=== PATIENT | female | born 1990 | race Caucasian/White ===

== ENCOUNTER 2016-07-31 22:05 | Emergency (ER) | payer MEDICAID ==
--- NOTE | 2016-08-01 02:05 | ER Document Report ---
ED General - General Chief Complaint: Nausea/Vomiting Stated Complaint: VOMITING WITH Notes: Patient is a 26-year-old at 15 weeks gestation who presents with vomiting. States she's had frequent vomiting throughout this but had more severe vomiting tonight after eating Serbian food than normal. States that she's been able tolerate fluids since that time. Zofran helped improved her nausea and vomiting. Nothing worsens her symptoms. She notes that after the multiple episodes of vomiting she had a diffuse abdominal cramping pain which has since resolved. Denies any vaginal bleeding or discharge. She has not seen her primary care physician regarding today's concerns. No history of abdominal surgeries. No fever. TRAVEL OUTSIDE OF THE [place] IN LAST 30 DAYS: No - Related Data Allergies/Adverse Reactions: No Known Allergies Allergy (Verified 01/01/14 17:25) Past Medical History - General Information source: Patient - Social History Smoking Status: Current Every Day Smoker Chew tobacco use (# tins/day): No Frequency of alcohol use: None Drug Abuse: None Lives with: Spouse/Significant other Family History: Reviewed & Not Pertinent Patient has suicidal ideation: No Patient has homicidal ideation: No Neurological Medical History: Reports: Hx Migraine Renal/ Medical History: Denies: Hx Peritoneal Dialysis - Immunizations Immunizations up to date: Yes Hx Diphtheria, Pertussis, Tetanus Vaccination: Yes Review of Systems - Review of Systems Notes: Constitutional: Negative for fever. HENT: Negative for sore throat. Eyes: Negative for visual changes. Cardiovascular: Negative for chest pain. Respiratory: Negative for shortness of breath. Gastrointestinal: Negative for abdominal pain, positive for vomiting Genitourinary: Negative for dysuria. Musculoskeletal: Negative for back pain. Skin: Negative for rash. Neurological: Negative for headaches, weakness or numbness. 10 point ROS negative except as marked above and in HPI. Physical Exam - Vital signs Vitals: Temp Pulse Resp BP Pulse Ox 98.6 F 84 16 111/55 L 98 07/31/16 22:21 07/31/16 22:21 07/31/16 22:21 07/31/16 22:21 07/31/16 22:21 Interpretation: Normal Notes: PHYSICAL EXAMINATION: GENERAL: Well-appearing, well-nourished and in no acute distress. HEAD: Atraumatic, normocephalic. EYES: Pupils equal round and reactive to light, extraocular movements intact, sclera anicteric, conjunctiva are normal. ENT: nares patent, oropharynx clear without exudates. Moist mucous membranes. NECK: Normal range of motion, supple without lymphadenopathy LUNGS: Breath sounds clear to auscultation bilaterally and equal. No wheezes rales or rhonchi. HEART: Regular rate and rhythm without murmurs ABDOMEN: Soft, nontender, normoactive bowel sounds. No guarding, no rebound. No masses appreciated. EXTREMITIES: Normal range of motion, no pitting or edema. No cyanosis. NEUROLOGICAL: No focal neurological deficits. Moves all extremities spontaneously and on command. PSYCH: Normal mood, normal affect. SKIN: Warm, Dry, normal turgor, no rashes or lesions noted. Course - Re-evaluation Re-evalutation: 08/01/16 02:03 Patient presents with persistent vomiting during . Vitals at time of arrival unremarkable without tachycardia or hypotension. Patient was able to tolerate oral intake here in the emergency department. Bedside ultrasound shows appropriate heart rate for gestational age with active movement. No vaginal bleeding or discharge. Based on abdominal exam, vitals and history I do not suspect an acute appendicitis, cholestasis of , acute cholecystitis, pancreatitis, or bowel obstruction. Patient will be started on a combination of doxylamine and vitamin B6. At this time will discharge with return precautions and follow-up recommendations. Verbal discharge instructions given a the bedside and opportunity for questions given. Medication warnings reviewed. Patient is in agreement with this plan and has verbalized understanding of return precautions and the need for primary care follow-up in the next 24-72 hours. - Vital Signs Vital signs: Temp Pulse Resp BP Pulse Ox 98.6 F 72 18 110/55 L 98 08/01/16 02:15 08/01/16 02:15 08/01/16 02:15 08/01/16 02:15 08/01/16 02:15 Discharge - Discharge Clinical Impression: Vomiting during Condition: Good Disposition: HOME, SELF-CARE Additional Instructions: You have been seen for vomiting during . You should continue to drink plenty of water and consider taking a solution such as Pedialyte if your having difficulty eating food. Please return if you become unable to drink any fluids for more than 12 hours, urinate less than twice a day, pass out, or have any other symptoms that are concerning to you. For nausea and vomiting during I recomment: Start with 10-12.5 mg of pyridoxine (vitamin B6) three times a day for 2 days. If not fully effective, Increase to 12.5 mg of pyridoxine four times a day for 2 days. If not fully effective, Increase to 25 mg of pyridoxine three times a day for 2 days. If not fully effective, Continue 25 mg pyridoxine 3 times a day, and add 12.5 mg of doxylamine before bedtime each day for 2 days. If not fully effective, Continue 25 mg pyridoxine 3 times a day, and take 12.5 mg of doxylamine twice a day. If not fully effective, Continue 25 mg pyridoxine 3 times a day, and take 12.5 mg of doxylamine three times a day. If not fully effective, Continue 25 mg pyridoxine 3 times a day, and 12.5 mg of doxylamine 3 times a day , while adding Emetrol, one to two tablespoons (15-30 cc) taken once or twice a day as needed. (Emetrol is an [id number] mixture of sugar syrups and phosphoric acid [phosphorylated carbohydrate solution]) that acts by soothing the actual wall of the gastrointestinal tract). If not fully effective, Consult with your doctor.
[2016-08-01 02:17] VITALS: BP 110/55
== END 2016-08-01 02:15 | disposition home or self-care (01) ==
LOC: ER 22:05
DX: O21.9 Vomiting of pregnancy, unspecified (principal); O26.892 Other specified pregnancy related conditions, second trimester; R10.84 Generalized abdominal pain; O99.332 Smoking (tobacco) complicating pregnancy, second trimester; F17.200 Nicotine dependence, unspecified, uncomplicated; Z3A.15 15 weeks gestation of pregnancy
CPT/HCPCS: 99283

== ENCOUNTER 2016-10-15 16:01 | Outpatient (CLI) | payer MEDICAID ==
[2016-10-15 16:49] LABS: APPEARANCE,URINE SLIGHTLY-CLOUDY; BILIRUBIN,URINE NEGATIVE (NEGATIVE); GLUCOSE, URINE NEGATIVE (NEGATIVE); KETONES,URINE NEGATIVE (NEGATIVE); LEUKOCYTE ESTERASE,URINE NEGATIVE (NEGATIVE); NITRITE,URINE NEGATIVE (NEGATIVE); PROTEIN,URINE NEGATIVE (NEGATIVE); URINE SPECIFIC GRAVITY 1.023; UROBILINOGEN,URINE NEGATIVE mg/dL (<2.0)
[2016-10-15 17:21] LABS: URINE BARBITURATES SCREEN NEGATIVE; URINE METHADONE SCREEN NEGATIVE; URINE OPIATES LOW NEGATIVE; URINE PHENCYCLIDINE SCREEN NEGATIVE
== END 2016-10-15 17:58 | disposition home or self-care (01) ==
LOC: LC 16:01
PROVIDERS: ATTEND Obstetrics & Gynecology
PROC: 4A1HXCZ Monitoring of Products of Conception, Cardiac Rate, External Approach (ICD-10-PCS; principal; 2016-10-15)
DX: O26.892 Other specified pregnancy related conditions, second trimester (principal); R10.2 Pelvic and perineal pain; Z3A.25 25 weeks gestation of pregnancy
CPT/HCPCS: 76815; 80307; 81001

== ENCOUNTER 2016-12-20 12:11 | Outpatient (CLI) | payer MEDICAID ==
[2016-12-20 12:43] LABS: AMORPHOUS SEDIMENT,URINE TRACE /HPF; APPEARANCE,URINE CLOUDY; BILIRUBIN,URINE NEGATIVE (NEGATIVE); GLUCOSE, URINE NEGATIVE (NEGATIVE); KETONES,URINE NEGATIVE (NEGATIVE); LEUKOCYTE ESTERASE,URINE NEGATIVE (NEGATIVE); NITRITE,URINE NEGATIVE (NEGATIVE); PROTEIN,URINE 30 mg/dL (NEGATIVE); URINE SPECIFIC GRAVITY 1.027
[2016-12-20 13:51] LABS: URINE BARBITURATES SCREEN NEGATIVE; URINE METHADONE SCREEN NEGATIVE; URINE OPIATES LOW NEGATIVE; URINE PHENCYCLIDINE SCREEN NEGATIVE
== END 2016-12-20 13:44 | disposition home or self-care (01) ==
LOC: LC 12:11
PROVIDERS: ATTEND Obstetrics & Gynecology
PROC: 4A1HXCZ Monitoring of Products of Conception, Cardiac Rate, External Approach (ICD-10-PCS; principal; 2016-12-20)
DX: Z34.93 Encounter for supervision of normal pregnancy, unspecified, third trimester (principal); Z36 Encounter for antenatal screening of mother; Z3A.34 34 weeks gestation of pregnancy
CPT/HCPCS: 59025; 80307; 81001

== ENCOUNTER 2017-07-11 20:10 | Emergency (ER) | payer MEDICAID ==
[2017-07-11 21:24] LABS: ABSOLUTE EOSINOPHILS # (AUTO) 0.2 10^3/uL (0.0-0.6); ABSOLUTE LYMPHOCYTES (AUTO) 1.6 10^3/uL (0.5-4.7); ABSOLUTE MONOCYTES (AUTO) 0.4 10^3/uL (0.1-1.4); ABSOLUTE NEUT (AUTO) 3.3 10^3/uL (1.7-8.2); BASOPHILS % (AUTO) 0.6 % (0-2); HEMATOCRIT 33.7 % (36.0-47.0); HEMOGLOBIN 11.4 g/dL (12.0-15.5); MEAN CORPUSCULAR HEMOGLOBIN 26.8 pg (27.0-33.4); MEAN CORPUSCULAR HGB CONC 33.8 g/dL (32.0-36.0); MEAN CORPUSCULAR VOLUME 79 fl (80-97); PLATELET COUNT 187 10^3/uL (150-450); RED BLOOD COUNT 4.25 10^6/uL (3.72-5.28); RED CELL DISTRIBUTION WIDTH 15.8 % (11.5-14.0); SEGMENTED NEUTROPHILS % (AUTO) 59.4 % (42-78); TOTAL CELLS COUNTED % (AUTO) 100 %; WHITE BLOOD COUNT 5.5 10^3/uL (4.0-10.5)
[2017-07-11 21:28] LABS: APPEARANCE,URINE CLEAR; BILIRUBIN,URINE NEGATIVE (NEGATIVE); COLOR,URINE YELLOW; GLUCOSE, URINE NEGATIVE (NEGATIVE); KETONES,URINE NEGATIVE (NEGATIVE); LEUKOCYTE ESTERASE,URINE NEGATIVE (NEGATIVE); NITRITE,URINE NEGATIVE (NEGATIVE); PROTEIN,URINE NEGATIVE (NEGATIVE); URINE SPECIFIC GRAVITY 1.024
[2017-07-11 21:43] LABS: ALANINE AMINOTRANSFERASE 23 U/L (9-52); ALBUMIN 3.9 g/dL (3.5-5.0); ALKALINE PHOSPHATASE 41 U/L (38-126); ANION GAP 10 (5-19); ASPARTATE AMINO TRANSFERASE 18 U/L (14-36); BILIRUBIN,DIRECT 0.2 mg/dL (0.0-0.4); BILIRUBIN,TOTAL 0.3 mg/dL (0.2-1.3); BLOOD UREA NITROGEN 13 mg/dL (7-20); CALCIUM 9.4 mg/dL (8.4-10.2); CARBON DIOXIDE 25 mmol/L (22-30); CHLORIDE 105 mmol/L (98-107); GLUCOSE 84 mg/dL (75-110); LIPASE 172.2 U/L (23-300); POTASSIUM 3.6 mmol/L (3.6-5.0); SODIUM 139.8 mmol/L (137-145); TOTAL PROTEIN 6.4 g/dL (6.3-8.2)
--- NOTE | 2017-07-11 22:31 | ER Document Report ---
ED GI/ - General Chief Complaint: Abdominal Pain Stated Complaint: LOWER ABDOMINAL PAIN , Time Seen by Provider: 07/11/17 22:04 Notes: The patient is a 27-year-old female, ~6 weeks by LMP (05/30/17), on Suboxone, presents with lower abdominal cramping for the past 2 days. Patient said she has not had a full bowel movement for the past 6 weeks, which is not unusual for her. She takes milk of magnesia with mild relief of her symptoms. Patient denies dysuria, fevers, vaginal bleeding, flank pain, nausea , vomiting, abdominal distention, vaginal discharge or headache. TRAVEL OUTSIDE OF THE [place] IN LAST 30 DAYS: No - Related Data Allergies/Adverse Reactions: acetaminophen [From Fioricet] Allergy (Verified 10/15/16 17:06) bupropion [From Wellbutrin] Allergy (Verified 10/15/16 17:06) butalbital [From Fioricet] Allergy (Verified 10/15/16 17:06) caffeine [From Fioricet] Allergy (Verified 10/15/16 17:06) lorazepam [From Ativan] Allergy (Verified 10/15/16 17:06) Past Medical History - General Information source: Patient - Social History Smoking Status: Current Every Day Smoker Family History: Reviewed & Not Pertinent Patient has suicidal ideation: No Patient has homicidal ideation: No Neurological Medical History: Reports: Hx Migraine Renal/ Medical History: Denies: Hx Peritoneal Dialysis - Immunizations Immunizations up to date: Yes Hx Diphtheria, Pertussis, Tetanus Vaccination: Yes Review of Systems - Review of Systems Notes: REVIEW OF SYSTEMS: CONSTITUTIONAL: -fevers, -chills EENT: -eye pain, -difficulty swallowing, -nasal congestion CARDIOVASCULAR: -chest pain, -syncope. RESPIRATORY: -cough, -SOB GASTROINTESTINAL: +lower abdominal pain, -nausea, -vomiting, -diarrhea GENITOURINARY: -dysuria, -hematuria MUSCULOSKELETAL: -back pain, -neck pain SKIN: -rash or skin lesions. HEMATOLOGIC: -easy bruising or bleeding. LYMPHATIC: -swollen, enlarged glands. NEUROLOGICAL: -altered mental status or loss of consciousness, -headache, - neurologic symptoms PSYCHIATRIC: -anxiety, -depression. ALL OTHER SYSTEMS REVIEWED AND NEGATIVE. Physical Exam - Vital signs Vitals: Temp Pulse Resp BP Pulse Ox 98.7 F 80 16 115/60 99 07/11/17 20:15 07/11/17 20:15 07/11/17 20:15 07/11/17 20:15 07/11/17 20:15 - Notes Notes: PHYSICAL EXAMINATION: GENERAL: Well-appearing, well-nourished and in no acute distress. HEAD: Atraumatic, normocephalic. EYES: Pupils equal round and reactive to light, extraocular movements intact, sclera anicteric, conjunctiva are normal. ENT: nares patent, oropharynx clear without exudates. Moist mucous membranes. NECK: Normal range of motion, supple without lymphadenopathy LUNGS: Breath sounds clear to auscultation bilaterally and equal. No wheezes rales or rhonchi. HEART: Regular rate and rhythm without murmurs ABDOMEN: Soft, nontender, normoactive bowel sounds. No guarding, no rebound. No masses appreciated. EXTREMITIES: Normal range of motion, no pitting or edema. No cyanosis. NEUROLOGICAL: Cranial nerves grossly intact. Normal speech, normal gait. Normal sensory and motor exams. PSYCH: Normal mood, normal affect. SKIN: Warm, Dry, normal turgor, no rashes or lesions noted. Course - Re-evaluation Re-evalutation: Patient appears well and is having no abdominal tenderness. Her ultrasound shows a single intrauterine fetus with an estimated gestational age of 6 weeks, which is consistent with her last menstrual period. Instructed patient about safe laxatives and and following up with the TELEMARKETING MANAGER. - Vital Signs Vital signs: Temp Pulse Resp BP Pulse Ox 98.7 F 80 16 115/60 99 07/11/17 20:15 07/11/17 20:15 07/11/17 20:15 07/11/17 20:15 07/11/17 20:15 - Laboratory Result Diagrams: 07/11/17 21:10 07/11/17 21:10 Laboratory results interpreted by me: 07/11/17 07/11/17 07/11/17 21:10 21:10 21:10 Hgb 11.4 L Hct 33.7 L MCV 79 L MCH 26.8 L RDW 15.8 H Beta HCG, Quant 99168.00 H Urine Urobilinogen 2.0 H Urine HCG, Qual POSITIVE H - Diagnostic Test Radiology reviewed: Image reviewed, Reports reviewed Radiology results interpreted by me: OB US: Single IUP 6 weeks. Discharge - Discharge Clinical Impression: Abdominal pain during in first trimester Constipation Qualifiers: Constipation type: unspecified constipation type Qualified Code(s): K59.00 - Constipation, unspecified Condition: Stable Additional Instructions: : You are . care is best started as early in as possible. If you're unsure about continuing this , you should discuss this with your physician or with community case manager at [facility]. You should take only medications approved by your physician. Acetaminophen can safely be taken for minor pains. As a rule, medication for chronic conditions such as asthma or seizures can safely be continued. You should discuss with the physician every medicine you take. Any regular exercise program can be continued. Talk to your physician, however, before engaging in competitive or demanding sports. Alcohol, smoking, and "street drugs" are dangerous to your baby. Cocaine is especially dangerous. Don't use any illicit drugs! THREATENED MISCARRIAGE: You have been evaluated for a possible miscarriage. At this time, there is no indication that a miscarriage will occur. Most women with your symptoms will go on to have a perfectly normal baby. However, careful observation will be necessary. A miscarriage occurs when the fetus is abnormal. There is no medicine or treatment for it. You should rest in bed until the symptoms have resolved. Do not douche or have sex for at least a week, or until OK'd by the doctor. Call the doctor or return for re-examination if there is an increase in bleeding or cramping, or passage of tissue. FOLLOW-UP CARE: If you have been referred to a physician for follow-up care, call the physician s office for an appointment as you were instructed or within the next two days. If you experience worsening or a significant change in your symptoms (very heavy bleeding with large clots of blood, passage of tissue, more severe abdominal / pelvic pain or cramping, feeling faint or severe weakness, fever, etc.), notify the physician immediately or return to the Emergency Department at any time for re-evaluation. OBSTETRIC-GYNECOLOGIC (OB-MESSENGER FLOORPERSON) PHYSICIANS IN [place]: [facility] [address], [place] [phone] [facility] [address] [place] [address] [phone] For active duty and dependents diagnosed with a threatened or miscarriage, you should follow up in the following manner: Standard patients who have a local civilian provider should follow up with that provider. Patients of the Family Practice Clinic should call your Team Nurse at 8: 00 am the following morning for further instructions. If you are neither a Standard patient nor a patient of the [facility], you should follow up at the [facility] ([facility]) . Patients already enrolled in the [facility], Prime patients not assigned to the Family Practice Clinic, and Active Duty patients not assigned to [facility] should report to the [facility] at 8:00 am the next morning that the [facility] is open and then you will be seen in the OB Clinic at 11:00 am. ABDOMINAL PAIN: There are many causes of abdominal pain. Pain can mean a serious problem requiring surgery (such as appendicitis). It can also be an innocent problem that goes away on its own (such as a viral infection). Often, time must pass to determine the cause of pain. The physician does not feel that hospitalization is necessary, at present. Things may change within the next 24 hours. Call the doctor or come back for re- examination if any problems occur, such as: (1) Pain that becomes more severe, steady, or becomes concentrated in one specific area. Also, pain that is more severe with movement or coughing. (2) Vomiting that persists or becomes more frequent. (3) Blood in the vomitus, urine, or bowel movements. Blood in the stool may have a tarry or black appearance. (4) Shaking chills or fever greater than 100 degrees F. (5) The abdomen becomes more distended or swollen. (6) Bowel movements cease. (7) Failure to improve as expected. NORMAL EXAM AND WORKUP: At this time, your examination and workup show no significant abnormality. No significant abnormal physical findings are noted. All laboratory, EKG, and imaging (x-ray, CT scans, ultrasound) studies that were ordered show no significant abnormality. Although your examination and all studies that were ordered showed no significant abnormal finding, there are no examinations and no studies that are 100% accurate. There is always the possibility that some abnormality could exist and not be detected with physical examination or within the limits and capabilities of laboratory and other studies. You should return or follow up as you were instructed on your visit today for further evaluation if your symptoms do not resolve. CONSTIPATION: Constipation is a common problem. It is especially likely as you get older. Constipation is a common cause of abdominal pain, but sometimes causes no symptoms at all. Causes of constipation include certain medications, dehydration, diets, inactivity, and low-fiber intake. Rarely, it can be a symptom of underlying disease. The physician has evaluated you for this. Avoid constipation by eating a diet high in fiber, fruits, and vegetables. Drink plenty of liquids. Get regular exercise. If possible, avoid constipating medicines like narcotic pain medication. Some vitamin tablets can cause constipation. Stool softeners may be needed for difficult cases. An excellent stool softener is Konsyl which is available at [employer], and [employer]. Just add a teaspoon to a glass of pineapple or orange juice daily or twice a day if needed. Laxatives are useful for occasional constipation. You should use them only when necessary. Too-frequent use can make your bowels dependent on them. Some over the counter laxatives available without prescription are: Milk of Magnesia, 1-2 tablespoons twice a day Dulcolax, 5 mg pill or 10 mg suppository. Citrate of Magnesia, 4-5 ounces a day for a day or two For acute constipation, Fleet's Enemas and Dulcolax suppositories are helpful. Chronic, longterm use of laxatives or enemas is not a good idea. Your bowel may become dependant on them. You do not need to have a bowel movement every day. Many people do fine with a bowel movement every three or four days. You should call your doctor or return for re-evaluation if you pass blood in the stool, or if you develop fever or increasing abdominal pain. BULK LAXATIVES: Bulk laxatives make the stool softer and bulkier. They're useful for preventing constipation. You can choose between psyllium, methylcellulose, and polycarbophil. They are available without a prescription. Psyllium brand names include Konsyl, Metamucil, Perdiem, Effer-Syllium and Hydrocil. It's available as powder, flavored drink powder, or chewable. The usual dose of psyllium powder is one heaping teaspoon in water each morning, increasing to twice a day if needed. [place] juice can disguise the slightly grainy texture. Methylcellulose is marketed as Citrucel and other brands. The average dose is two grams in a cup of water one to three times a day. Polycarbophil is marketed as Fiber-Con. Take two tablets with a cup of water one to three times a day. LAXATIVE: A laxative agent has been prescribed for your condition. This should result in passage of stool within 12 hours. Some mild intestinal cramping is common as the hard stool begins to move. You may have loose or runny stools for a short time. Contact your doctor if there is severe cramping, vomiting, or passage of blood. Return for further care if this medicine fails to improve your condition. FOLLOW-UP CARE: If you have been referred to a physician for follow-up care, call the physician s office for an appointment as you were instructed or within the next two days. If you experience worsening or a significant change in your symptoms, notify the physician immediately or return to the Emergency Department at any time for re-evaluation. Referrals: MATA FORTUNE MD [ACTIVE STAFF] - Follow up as needed
--- NOTE | 2017-07-11 23:22 | RADIOLOGY REPORT (SQ) ---
EXAM DESCRIPTION: U/S OB TRANSVAGINAL W/O DOP CLINICAL HISTORY: 27 years, Female, 5 weeks , lower abdominal pain COMPARISON: 03/21/2016 TECHNIQUE: Transvaginal LIMITATIONS: None. FINDINGS: Living intrauterine fetus with crown-rump length of 0.4 cm corresponding with a gestational age of six weeks and zero days and EVE of 03/06/2016. Cardiac activity/flicker is present with no measurable heart rate at this time. 2.1 cm right ovary and 3.0 cm left ovary are of normal size, shape, echotexture, and vascularity. No free fluid. IMPRESSION: Living intrauterine fetus with gestational age of 6w0d. 2010 [employer]- All Rights Reserved
[2017-07-12 00:06] VITALS: BP 113/64
== END 2017-07-11 23:46 | disposition home or self-care (01) ==
LOC: ER 20:10
DX: O26.891 Other specified pregnancy related conditions, first trimester (principal); R10.30 Lower abdominal pain, unspecified; K59.00 Constipation, unspecified; Z3A.01 Less than 8 weeks gestation of pregnancy; F17.200 Nicotine dependence, unspecified, uncomplicated
CPT/HCPCS: 36415; 76817; 80053; 81001; 81025; 83690; 84702; 85025; 99284

== ENCOUNTER 2017-08-13 00:44 | Emergency (ER) | payer MEDICAID ==
[2017-08-13 00:49] VITALS: BP 111/62
--- NOTE | 2017-08-13 01:47 | ER Document Report ---
ED GI/ - General Mode of Arrival: Ambulatory Information source: Patient TRAVEL OUTSIDE OF THE [place] IN LAST 30 DAYS: No <SANDIE BEAN - Last Filed: 08/13/17 04:14> <YOSELIN LANGFORD - Last Filed: 08/13/17 04:20> - General Chief Complaint: Vag Bleeding, +preg <12wks Stated Complaint: POSSIBLE BLOOD CLOTS Time Seen by Provider: 08/13/17 01:25 Notes: Patient is a 27-year-old female who presents to the emergency department today with complaints of vaginal bleeding. Patient is . Patient states her symptoms today are not similar to her previous miscarriages as she had abdominal pain then which she does not have now. Patient is "a negative blood type" stating she has received RhoGam in the past. Patient states that her "vagina felt swollen and heavy" today. Patient denies dysuria. (SANDIE BEAN) - Related Data Allergies/Adverse Reactions: acetaminophen [From Fioricet] Allergy (Verified 10/15/16 17:06) bupropion [From Wellbutrin] Allergy (Verified 10/15/16 17:06) butalbital [From Fioricet] Allergy (Verified 10/15/16 17:06) caffeine [From Fioricet] Allergy (Verified 10/15/16 17:06) lorazepam [From Ativan] Allergy (Verified 10/15/16 17:06) Past Medical History - General Information source: Patient - Social History Smoking Status: Never Smoker Cigarette use (# per day): No Frequency of alcohol use: None Drug Abuse: None Lives with: Family Family History: Reviewed & Not Pertinent Neurological Medical History: Reports: Hx Migraine Surgical Hx: Negative - Immunizations Immunizations up to date: Yes Hx Diphtheria, Pertussis, Tetanus Vaccination: Yes <SANDIE BEAN - Last Filed: 08/13/17 04:14> Review of Systems - Review of Systems Constitutional: No symptoms reported EENT: No symptoms reported Cardiovascular: No symptoms reported Respiratory: No symptoms reported Gastrointestinal: denies: Abdominal pain Genitourinary: denies: Dysuria Female Genitourinary: See HPI, , Other - "vagina feels swollen and heavy " Musculoskeletal: No symptoms reported Skin: No symptoms reported Hematologic/Lymphatic: No symptoms reported Neurological/Psychological: No symptoms reported -: Yes All other systems reviewed and negative <SANDIE BEAN - Last Filed: 08/13/17 04:14> Physical Exam <SANDIE BEAN - Last Filed: 08/13/17 04:14> <YOSELIN LANGFORD - Last Filed: 08/13/17 04:20> - Vital signs Vitals: Temp Pulse Resp BP Pulse Ox 98.8 F 82 18 111/62 100 08/13/17 00:47 08/13/17 00:47 08/13/17 00:47 08/13/17 00:47 08/13/17 00:47 - Notes Notes: Physical Exam: General: Alert, appears uncomfortable. HEENT: Normocephalic. Atraumatic. PERRL. Extraocular movements intact. Oropharynx clear. Neck: Supple. Non-tender. Respiratory: No respiratory distress. Clear and equal breath sounds bilaterally. Cardiovascular: Regular rate and rhythm. Abdominal: Normal Inspection. Non-tender. No distension. Normal Bowel Sounds. Back: Non-tender. No deformity or step off. Extremities: Moves all four extremities. Upper extremities: Normal inspection. Normal ROM. Lower extremities: Normal inspection. No edema. Normal ROM. Neurological: Normal cognition. AAOx4. Normal speech. Psychological: Normal affect. Normal Mood. Skin: Warm. Dry. Normal color. (SANDIE BEAN) - Genitourinary Notes: pt would like to defer exam to [employer] (YOSELIN LANGFORD) Course - Laboratory Result Diagrams: 08/13/17 01:55 08/13/17 01:55 <SANDIE BEAN - Last Filed: 08/13/17 04:14> - Laboratory Result Diagrams: 08/13/17 01:55 08/13/17 01:55 - Diagnostic Test Radiology reviewed: Reports reviewed <YSOELIN LANGFORD - Last Filed: 08/13/17 04:20> - Re-evaluation Re-evalutation: 08/13/17 04:19 Patient is a 27-year-old female who comes in with spotting. No heavy bleeding. No abdominal cramping. No evidence for UTI. Ultrasound concerning for possible miscarriage. Patient is instructed to follow-up with EXECUTIVE STAFF ASSISTANT on Wednesday. She has been given a copy of her beta hCG. Patient with negative blood type. Given RhoGam. Stable for discharge. Return if any worsening or concerning symptoms. (YOSELIN LANGFORD) - Vital Signs Vital signs: Temp Pulse Resp BP Pulse Ox 98.8 F 82 18 111/62 100 08/13/17 00:47 08/13/17 00:47 08/13/17 00:47 08/13/17 00:47 08/13/17 00:47 - Laboratory Laboratory results interpreted by me: 08/13/17 08/13/17 08/13/17 01:43 01:55 01:55 Hgb 11.2 L Hct 33.8 L MCH 26.5 L RDW 15.3 H Glucose 69 L Beta HCG, Quant 29906.00 H Urine Urobilinogen 2.0 H Urine Ascorbic Acid 40 H Discharge <SANDIE BEAN - Last Filed: 08/13/17 04:14> <YOSELIN LANGFORD - Last Filed: 08/13/17 04:20> - Discharge Clinical Impression: Bleeding in early , Possible miscarriage Condition: Stable Disposition: HOME, SELF-CARE Instructions: Bleeding During Early ([facility]), Rhogam ([facility]), Threatened Miscarriage ([facility]) Additional Instructions: Please follow-up with the EXECUTIVE STAFF ASSISTANT on Wednesday. Please call in the morning for an appointment. Take a copy of your blood work with you. Forms: Follow-Up Laboratory Testing, Return to Work Referrals: STEFAN ALCANTAR MD [Primary Care Provider] - 08/16/17 Scribe Attestation: 08/13/17 04:20 I personally performed the services described in the documentation, reviewed and edited the documentation which was dictated to the scribe in my presence, and it accurately records my words and actions. (YOSELIN LANGFORD) Scribe Documentation - Scribe Written by Chetan:: chetan Head, 08/13/2017 0158 acting as scribe for :: Keely <SANDIE BEAN - Last Filed: 08/13/17 04:14>
[2017-08-13 02:01] LABS: APPEARANCE,URINE SLIGHTLY-CLOUDY; BILIRUBIN,URINE NEGATIVE (NEGATIVE); COLOR,URINE YELLOW; GLUCOSE, URINE NEGATIVE (NEGATIVE); KETONES,URINE NEGATIVE (NEGATIVE); LEUKOCYTE ESTERASE,URINE NEGATIVE (NEGATIVE); NITRITE,URINE NEGATIVE (NEGATIVE); PROTEIN,URINE NEGATIVE (NEGATIVE); URINE SPECIFIC GRAVITY 1.032
[2017-08-13 02:04] LABS: ABSOLUTE BASOPHILS # (AUTO) 0.1 10^3/uL (0.0-0.2); ABSOLUTE EOSINOPHILS # (AUTO) 0.2 10^3/uL (0.0-0.6); ABSOLUTE LYMPHOCYTES (AUTO) 2.3 10^3/uL (0.5-4.7); ABSOLUTE MONOCYTES (AUTO) 0.4 10^3/uL (0.1-1.4); ABSOLUTE NEUT (AUTO) 4.3 10^3/uL (1.7-8.2); BASOPHILS % (AUTO) 0.9 % (0-2); EOSINOPHILS % (AUTO) 2.2 % (0-6); HEMATOCRIT 33.8 % (36.0-47.0); HEMOGLOBIN 11.2 g/dL (12.0-15.5); LYMPHOCYTES % (AUTO) 31.8 % (13-45); MEAN CORPUSCULAR HEMOGLOBIN 26.5 pg (27.0-33.4); MEAN CORPUSCULAR HGB CONC 33.2 g/dL (32.0-36.0); MEAN CORPUSCULAR VOLUME 80 fl (80-97); MONOCYTES % (AUTO) 5.6 % (3-13); PLATELET COUNT 253 10^3/uL (150-450); RED BLOOD COUNT 4.24 10^6/uL (3.72-5.28); RED CELL DISTRIBUTION WIDTH 15.3 % (11.5-14.0); SEGMENTED NEUTROPHILS % (AUTO) 59.5 % (42-78); TOTAL CELLS COUNTED % (AUTO) 100 %; WHITE BLOOD COUNT 7.3 10^3/uL (4.0-10.5)
[2017-08-13 02:17] LABS: ALANINE AMINOTRANSFERASE 16 U/L (9-52); ALBUMIN 4.2 g/dL (3.5-5.0); ALKALINE PHOSPHATASE 40 U/L (38-126); ANION GAP 10 (5-19); ASPARTATE AMINO TRANSFERASE 17 U/L (14-36); BILIRUBIN,DIRECT 0.3 mg/dL (0.0-0.4); BILIRUBIN,TOTAL 0.4 mg/dL (0.2-1.3); BLOOD UREA NITROGEN 16 mg/dL (7-20); CALCIUM 9.5 mg/dL (8.4-10.2); CARBON DIOXIDE 27 mmol/L (22-30); CHLORIDE 103 mmol/L (98-107); GLUCOSE 69 mg/dL (75-110); POTASSIUM 3.8 mmol/L (3.6-5.0); SODIUM 140.4 mmol/L (137-145); TOTAL PROTEIN 6.8 g/dL (6.3-8.2)
--- NOTE | 2017-08-13 03:00 | RADIOLOGY REPORT (SQ) ---
EXAM DESCRIPTION: U/S OB TRANSVAGINAL W/O DOP CLINICAL HISTORY: 27 years Female, , bleeding COMPARISON: 07/11/2017 TECHNIQUE: Complete first trimester surgical ultrasound with transvaginal and transabdominal imaging. FINDINGS: Uterus measures 12.0 x 8.6 x 6.8 cm. Single intrauterine with crown-rump length of 2.87 cm compatible with an estimated gestational age of 9 weeks, 5 days. No heart tones identified. Cervical length of 2.7 cm. No cardiac activity visualized. The right ovary is not identified. The left ovary measures 3.3 x 2.3 x 2.2 cm. Color Doppler images demonstrate flow within the ovary. No free pelvic fluid identified. IMPRESSION: 1. Findings suggest demise. There is a single intrauterine with estimated gestational age of 9 5 days however no cardiac activity is identified. Close continued clinical, laboratory, and sonographic follow-up recommended.
== END 2017-08-13 04:22 | disposition home or self-care (01) ==
LOC: ER 00:44
DX: O46.91 Antepartum hemorrhage, unspecified, first trimester (principal); Z3A.09 9 weeks gestation of pregnancy
CPT/HCPCS: 99284; 96372; 86900; 86901; 36415; 86850; 84702; 83690; 85025; 80053; 81001; 76817; J2790

== ENCOUNTER 2018-11-04 00:13 | Outpatient (CLI) | payer MEDICAID ==
[2018-11-04 00:49] LABS: APPEARANCE,URINE CLEAR; BILIRUBIN,URINE NEGATIVE (NEGATIVE); COLOR,URINE YELLOW; GLUCOSE, URINE NEGATIVE (NEGATIVE); KETONES,URINE NEGATIVE (NEGATIVE); LEUKOCYTE ESTERASE,URINE NEGATIVE (NEGATIVE); NITRITE,URINE NEGATIVE (NEGATIVE); PROTEIN,URINE 30 mg/dL (NEGATIVE); URINE SPECIFIC GRAVITY 1.027
[2018-11-04 01:10] LABS: URINE BARBITURATES SCREEN NEGATIVE; URINE BENZODIAZEPINES SCREEN NEGATIVE; URINE COCAINE SCREEN NEGATIVE; URINE MARIJUANA (THC) SCREEN NEGATIVE; URINE METHADONE SCREEN NEGATIVE; URINE PHENCYCLIDINE SCREEN NEGATIVE
[2018-11-04 01:14] LABS: URINE AMPHETAMINES SCREEN UNCONFIRMED POSITIVE
== END 2018-11-04 01:25 | disposition home or self-care (01) ==
LOC: LC 00:13
PROVIDERS: ATTEND Obstetrics & Gynecology
PROC: 4A1HXCZ Monitoring of Products of Conception, Cardiac Rate, External Approach (ICD-10-PCS; principal; 2018-11-04)
DX: O47.1 False labor at or after 37 completed weeks of gestation (principal); Z3A.39 39 weeks gestation of pregnancy
CPT/HCPCS: 59025; 36415; 81005; 80307 ×2; 84112; G0480

== ENCOUNTER 2019-10-05 19:26 | Emergency (ER) | payer MEDICAID ==
--- NOTE | 2019-10-05 22:32 | ER Document Report ---
ED General - General Chief Complaint: Shortness Of Breath Stated Complaint: COUGH Time Seen by Provider: 10/05/19 21:28 Primary Care Provider: STEFAN ALCANTAR MD [Primary Care Provider] - Follow up as needed Mode of Arrival: Ambulatory Information source: Patient Notes: 29-year-old woman presents to the emergency department with a history of 3 weeks of intermittent temperature elevation and feeling poorly. States that she had traveled to [place] and upon return had develop congestion and fever. She contacted her regular physician and was treated with Plaquenil and Azithromycin. States that she feels some better, however, now has had chest discomfort and di fficulty breathing with anxiety/panic attacks. She denies fever at this time. TRAVEL OUTSIDE OF THE [place] IN LAST 30 DAYS: No - Related Data Allergies/Adverse Reactions: acetaminophen [From Fioricet] Allergy (Verified 10/15/16 17:06) bupropion [From Wellbutrin] Allergy (Verified 10/15/16 17:06) butalbital [From Fioricet] Allergy (Verified 10/15/16 17:06) caffeine [From Fioricet] Allergy (Verified 10/15/16 17:06) lorazepam [From Ativan] Allergy (Verified 10/15/16 17:06) Past Medical History - Social History Smoking Status: Current Some Day Smoker Chew tobacco use (# tins/day): No Frequency of alcohol use: None Drug Abuse: None Family History: Reviewed & Not Pertinent Patient has suicidal ideation: No Patient has homicidal ideation: No Neurological Medical History: Reports: Hx Migraine Renal/ Medical History: Denies: Hx Peritoneal Dialysis Musculoskeletal Medical History: Denies Hx Arthritis - LYMES DISEASE - Immunizations Immunizations up to date: Yes Hx Diphtheria, Pertussis, Tetanus Vaccination: Yes Review of Systems - Review of Systems Notes: Constitutional: + Fatigue, negative for fever. HENT: Negative for sore throat. Eyes: Negative for visual changes. Cardiovascular: + Chest pain Respiratory: + Shortness of breath. Gastrointestinal: Negative for abdominal pain, vomiting or diarrhea. Genitourinary: Negative for dysuria. Musculoskeletal: + Myalgias Skin: Negative for rash. Neurological: Negative for headaches, weakness or numbness. 10 point ROS negative except as marked above and in HPI. Physical Exam - Vital signs Vitals: Temp Pulse Resp BP Pulse Ox 98.8 F 79 20 97/41 L 98 04/16/20 21:19 10/05/19 21:19 10/05/19 21:19 10/05/19 21:19 10/05/19 21:19 - Notes Notes: PHYSICAL EXAMINATION: Physical Exam: General: Well-nourished well-developed 29-year-old female in no acute distress HEENT: NC/AT, pupils equal round and reactive to light, MM moist,nares clear, oropharynx clear, airway patent Neck: supple, no adenopathy, no masses. Good range of motion Lungs: clear, no wheezing, no rales no rhonchi CVS: Regular rate and rhythm no murmur gallop or rub Abdomen: Soft, active, nontender, no masses, no hepatosplenomegaly Ext: No edema, clubbing or cyanosis. Neuro: Alert and responsive, moving all 4 extremities on command, cranial nerves intact, no focal findings Skin: Intact no open lesions, no rash PSYCH: Normal mood, normal affect. Course - Re-evaluation Re-evalutation: 10/06/19 00:35 Patient presents with low-grade temperature, cough and body aches. Evaluation for influenza and strep are negative, urinalysis was also noted to be negative. Given her presentation, coronavirus screening test is being performed. I have instructed the patient that she will need to self isolate until she received a report of the test results. The patient acknowledges that she has been tested for COVID-19, and will self isolate at home until she receives results. She is instructed to avoid anti-inflammatory medications. May use Tylenol for fever, aches and pains. She is also instructed to return to the hospital if her symptoms are worsening or development of shortness of breath. - Vital Signs Vital signs: Temp Pulse Resp BP Pulse Ox 98.7 F 72 20 100/47 L 93 10/06/19 00:02 10/06/19 00:02 10/06/19 00:02 10/06/19 00:02 10/06/19 00:02 - Laboratory Result Diagrams: 10/05/19 20:01 10/05/19 20:01 Laboratory results interpreted by me: 10/05/19 10/05/19 20:01 20:01 MCV 77 L MCH 26.3 L RDW 15.5 H Sodium 135.8 L I have reviewed laboratory data and used this information for the treatment decisions regarding the patient. - Diagnostic Test Radiology reviewed: Image reviewed, Reports reviewed - Chest x-ray: No acute findings. Discharge - Discharge Clinical Impression: Suspected 2019 novel coronavirus infection Condition: Good Disposition: HOME, SELF-CARE Additional Instructions: You were seen with fever and upper respiratory symptoms.Testing for influenza and strep were negative, chest x-ray is clear. Given the pandemic and coronavirus concerns, your were made a person of interest and a swab was colle cted and will be sent for COVID-19 evaluation. You will need to self quarantine until you get the results. Avoid anti-inflammatory medications, you may use Tylenol for fever, aches and pains. Please return to the hospital if her symptoms are worsening or development of shortness of breath. Referrals: STEFAN ALCANTAR MD [Primary Care Provider] - Follow up as needed
[2019-10-05 22:52] LABS: ABSOLUTE EOSINOPHILS # (AUTO) 0.1 10^3/uL (0.0-0.6); ABSOLUTE LYMPHOCYTES (AUTO) 1.1 10^3/uL (0.5-4.7); ABSOLUTE MONOCYTES (AUTO) 0.2 10^3/uL (0.1-1.4); ABSOLUTE NEUT (AUTO) 3.4 10^3/uL (1.7-8.2); BASOPHILS % (AUTO) 0.7 % (0-2); EOSINOPHILS % (AUTO) 1.7 % (0-6); HEMATOCRIT 37.1 % (36.0-47.0); HEMOGLOBIN 12.6 g/dL (12.0-15.5); LYMPHOCYTES % (AUTO) 23.3 % (13-45); MEAN CORPUSCULAR HEMOGLOBIN 26.3 pg (27.0-33.4); MEAN CORPUSCULAR VOLUME 77 fl (80-97); MONOCYTES % (AUTO) 4.7 % (3-13); PLATELET COUNT 279 10^3/uL (150-450); RED BLOOD COUNT 4.81 10^6/uL (3.72-5.28); RED CELL DISTRIBUTION WIDTH 15.5 % (11.5-14.0); SEGMENTED NEUTROPHILS % (AUTO) 69.6 % (42-78); TOTAL CELLS COUNTED % (AUTO) 100 %; WHITE BLOOD COUNT 4.9 10^3/uL (4.0-10.5)
[2019-10-05 22:54] LABS: APPEARANCE,URINE CLEAR; BILIRUBIN,URINE NEGATIVE (NEGATIVE); COLOR,URINE YELLOW; GLUCOSE, URINE NEGATIVE (NEGATIVE); KETONES,URINE NEGATIVE (NEGATIVE); PROTEIN,URINE NEGATIVE (NEGATIVE); URINE SPECIFIC GRAVITY 1.013; UROBILINOGEN,URINE NEGATIVE mg/dL (<2.0)
[2019-10-05 23:00] LABS: ALBUMIN 4.7 g/dL (3.5-5.0); ALKALINE PHOSPHATASE 52 U/L (38-126); ANION GAP 6 (5-19); ASPARTATE AMINO TRANSFERASE 27 U/L (14-36); BILIRUBIN,TOTAL 0.3 mg/dL (0.2-1.3); BLOOD UREA NITROGEN 16 mg/dL (7-20); CALCIUM 9.8 mg/dL (8.4-10.2); CARBON DIOXIDE 30 mmol/L (22-30); CHLORIDE 100 mmol/L (98-107); GLUCOSE 82 mg/dL (75-110); POTASSIUM 4.3 mmol/L (3.6-5.0); TOTAL PROTEIN 7.6 g/dL (6.3-8.2)
[2019-10-05 23:22] LABS: A TYPE INFLUENZA AG NEGATIVE (NEGATIVE); B INFLUENZA AG NEGATIVE (NEGATIVE)
--- NOTE | 2019-10-05 23:45 | RADIOLOGY REPORT (SQ) ---
EXAM DESCRIPTION: X-RAY CHEST- One View CLINICAL HISTORY: Shortness of breath and cough COMPARISON: None available TECHNIQUE: Single view of the chest. FINDINGS: There are no discrete air space infiltrates, pneumothoraces or pleural effusions. The pulmonary vascularity is normal. The cardiomediastinal silhouette is normal in size. No suspicious lytic or blastic osseous lesions are identified. IMPRESSION: No pulmonary opacities identified. Please note that chest radiographs have low sensitivity for subtle groundglass opacities.
[2019-10-06 00:46] VITALS: BP 119/63
--- NOTE | 2019-10-07 20:44 | EKG REPORT ---
SEVERITY:- NORMAL ECG - SINUS RHYTHM : Confirmed by: Osmel Atwood MD 07-Oct-2019 20:43:43
== END 2019-10-06 01:00 | disposition home or self-care (01) ==
LOC: ER 19:26
DX: Z20.828 Contact with and (suspected) exposure to other viral communicable diseases (principal); F41.9 Anxiety disorder, unspecified; F41.0 Panic disorder [episodic paroxysmal anxiety]; R07.9 Chest pain, unspecified; R06.02 Shortness of breath; M79.10 Myalgia, unspecified site; F17.200 Nicotine dependence, unspecified, uncomplicated; Z88.6 Allergy status to analgesic agent; Z88.8 Allergy status to other drugs, medicaments and biological substances
CPT/HCPCS: 36415; 71045; 80053; 81001; 85025; 87070; 87635; 87804; 87880; 93005; 93010; 99283

== ENCOUNTER 2020-05-03 16:20 | Outpatient (CLI) | payer MEDICAID ==
--- NOTE | 2020-05-03 17:27 | Non Stress Test Report ---
Non Stress Test Datetime Report Generated by CPN: 05/03/2020 17:27 DEMOGRAPHIC EGA NST: 37.1 INDICATION Indication for Study (NST) Other: Repeat from [facility] - on subutex VITAL SIGNS Temperature - NST: 98.4 Pulse - NST: 78 RESP - NST: 16 NBPSYS NST: 115 NBPDIA NST: 59 MONITORING Monitor Explained: Monitor Explained; Test Explained; Patient Verbalized Understanding Time on Monitor: 05/03/2020 16:37 Time off Monitor: 05/03/2020 17:21 NST Duration: 44 NST INTERVENTIONS NST Interventions: PO Hydration Physician Notified NST: Dr Redd BABY A: [id number] BABY A Movement : Present Contraction Frequency : rare FHR Baseline : 135 Accelerations : 15X15 Decelerations : None Variability : Moderate 6-25bpm NST Review: Meets Criteria for Reactive NST NST Review and Verified By : B Baidy RN NST Results: Reactive NST COMMENTS NST Comments: MD on unit NST REPORT Report Trigger: Send Report
== END 2020-05-03 17:25 | disposition home or self-care (01) ==
LOC: LC 16:20
PROVIDERS: ATTEND Student in an Organized Health Care Education/Training Program
PROC: 4A1HXCZ Monitoring of Products of Conception, Cardiac Rate, External Approach (ICD-10-PCS; principal; 2020-05-03)
DX: O26.893 Other specified pregnancy related conditions, third trimester (principal); Z3A.37 37 weeks gestation of pregnancy
CPT/HCPCS: 59025

== ENCOUNTER 2020-05-14 16:45 | Outpatient (CLI) | payer MEDICAID ==
--- NOTE | 2020-05-14 17:27 | Non Stress Test Report ---
Non Stress Test Datetime Report Generated by CPN: 05/14/2020 17:27 DEMOGRAPHIC EGA NST: 38.5 INDICATION Indication for Study (NST) Other: Iup at 38.5; Repeat NST VITAL SIGNS Temperature - NST: 98.0 Pulse - NST: 74 RESP - NST: 18 NBPSYS NST: 98 NBPDIA NST: 57 MONITORING Monitor Explained: Monitor Explained; Test Explained; Patient Verbalized Understanding Time on Monitor: 05/14/2020 16:55 Time off Monitor: 05/14/2020 17:19 NST Duration: 24 NST INTERVENTIONS NST Interventions: PO Hydration Physician Notified NST: Dr. Nils BABY A: [id number] BABY A Movement : Decreased Contraction Frequency : Occassional FHR Baseline : 130 Accelerations : 15X15 Decelerations : None Variability : Moderate 6-25bpm NST Review: Meets Criteria for Reactive NST NST Review and Verified By : L. Leonard, RN NST Results: Questionable NST Results: Reactive NST COMMENTS NST Comments: Dr. Nils reviewed strip NST REPORT Report Trigger: Send Report
== END 2020-05-14 17:21 | disposition home or self-care (01) ==
LOC: LC 16:45
PROVIDERS: ATTEND Obstetrics & Gynecology
DX: O36.8130 Decreased fetal movements, third trimester, not applicable or unspecified (principal); Z3A.38 38 weeks gestation of pregnancy
CPT/HCPCS: 59025

== ENCOUNTER 2020-05-23 21:19 | Outpatient (CLI) | payer MEDICAID ==
[2020-05-23 22:09] LABS: APPEARANCE,URINE CLEAR; BILIRUBIN,URINE NEGATIVE (NEGATIVE); COLOR,URINE YELLOW; GLUCOSE, URINE NEGATIVE (NEGATIVE); KETONES,URINE NEGATIVE (NEGATIVE); LEUKOCYTE ESTERASE,URINE TRACE (NEGATIVE); NITRITE,URINE NEGATIVE (NEGATIVE); PROTEIN,URINE 30 mg/dL (NEGATIVE); URINE SPECIFIC GRAVITY 1.026
[2020-05-23 22:29] LABS: URINE AMPHETAMINES SCREEN NEGATIVE; URINE BARBITURATES SCREEN NEGATIVE; URINE BENZODIAZEPINES SCREEN NEGATIVE; URINE COCAINE SCREEN NEGATIVE; URINE MARIJUANA (THC) SCREEN NEGATIVE; URINE METHADONE SCREEN NEGATIVE; URINE PHENCYCLIDINE SCREEN NEGATIVE
== END 2020-05-24 00:15 | disposition home or self-care (01) ==
LOC: LC 21:19
PROVIDERS: ATTEND Obstetrics & Gynecology
DX: O47.1 False labor at or after 37 completed weeks of gestation (principal); O99.333 Smoking (tobacco) complicating pregnancy, third trimester; F17.210 Nicotine dependence, cigarettes, uncomplicated; Z71.6 Tobacco abuse counseling; Z3A.40 40 weeks gestation of pregnancy; Z88.6 Allergy status to analgesic agent; Z88.8 Allergy status to other drugs, medicaments and biological substances
CPT/HCPCS: 80307; 81001

== ENCOUNTER 2020-05-24 07:34 | Inpatient (IN) | payer MEDICAID ==
[2020-05-24] MEDS ORDERED: RINGERS SOLUTION,LACTATED 1,000 ML IV PRN (07:47)
[2020-05-24] MEDS ORDERED: RINGERS SOLUTION,LACTATED 1,000 ML IV ONE (07:47)
[2020-05-24] MEDS ORDERED: MISOPROSTOL 0.2 MG TABLET ONE (07:50)
[2020-05-24] MEDS ORDERED: OXYTOCIN/0.9 % SODIUM CHLORIDE 30 UNIT/500 ML RTUINJ ONE (07:50)
[2020-05-24] MEDS ORDERED: LIDOCAINE 1% INJ-PF (10 MG/ML) 30 ML SDV ONE (07:50)
[2020-05-24 08:29] LABS: ABSOLUTE EOSINOPHILS # (AUTO) 0.1 10^3/uL (0.0-0.6); ABSOLUTE LYMPHOCYTES (AUTO) 1.7 10^3/uL (0.5-4.7); ABSOLUTE MONOCYTES (AUTO) 0.5 10^3/uL (0.1-1.4); ABSOLUTE NEUT (AUTO) 4.2 10^3/uL (1.7-8.2); BASOPHILS % (AUTO) 0.8 % (0-2); EOSINOPHILS % (AUTO) 1.4 % (0-6); HEMATOCRIT 32.9 % (36.0-47.0); HEMOGLOBIN 11.1 g/dL (12.0-15.5); MEAN CORPUSCULAR HEMOGLOBIN 25.6 pg (27.0-33.4); MEAN CORPUSCULAR HGB CONC 33.6 g/dL (32.0-36.0); MEAN CORPUSCULAR VOLUME 76 fl (80-97); MONOCYTES % (AUTO) 7.4 % (3-13); PLATELET COUNT 207 10^3/uL (150-450); RED BLOOD COUNT 4.33 10^6/uL (3.72-5.28); RED CELL DISTRIBUTION WIDTH 14.8 % (11.5-14.0); SEGMENTED NEUTROPHILS % (AUTO) 64.4 % (42-78); TOTAL CELLS COUNTED % (AUTO) 100 %; WHITE BLOOD COUNT 6.5 10^3/uL (4.0-10.5)
[2020-05-24] MEDS ORDERED: EPHEDRINE SULFATE INJ 50 MG/1 ML AMPULE ONE (09:03)
[2020-05-24] MEDS ORDERED: FENTANYL/BUPIVACAINE/NS/PF 300 MCG/150 ML RTUINJ EPI ONE (09:04)
[2020-05-24] MEDS ORDERED: ROPIVACAINE HCL 0.2% INJ/PF (2 MG/ML) 20 ML SDV ONE (09:04)
[2020-05-24 10:14] LABS: ALBUMIN 3.2 g/dL (3.5-5.0); ALKALINE PHOSPHATASE 163 U/L (38-126); ANION GAP 6 (5-19); ASPARTATE AMINO TRANSFERASE 32 U/L (14-36); BILIRUBIN,DIRECT 0.3 mg/dL (0.0-0.4); BILIRUBIN,TOTAL 0.6 mg/dL (0.2-1.3); BLOOD UREA NITROGEN 14 mg/dL (7-20); CARBON DIOXIDE 22 mmol/L (22-30); CHLORIDE 106 mmol/L (98-107); GLUCOSE 83 mg/dL (75-110); POTASSIUM 4.5 mmol/L (3.6-5.0); TOTAL PROTEIN 6.3 g/dL (6.3-8.2)
--- NOTE | 2020-05-24 10:35 | Admission Physical ---
Datetime Report Generated by CPN: 05/24/2020 10:35 CURRENT ADMISSION Chief Complaint: Suspected Ruptured Membranes Indication for Induction: Not Applicable Admit Impression : Term, Intrauterine ; Active Labor Admit Plan: Admit to Unit; Initiate Labor Protocol Admit Plan- Other: will Augment as needed ALLERGIES Medication Allergies: Yes Medication Allergies: caffeine (05/23/2020); butalbital (05/23/2020); lorazepam (05/24/2020); acetaminophen (05/23/2020); bupropion (05/23/2020) Latex: No Latex Allergies OBSTETRICAL HISTORY EDC: 05/23/2020 00:00 : 9 Para: 3 Term: 3 : 0 SAB: 5 IAB: 0 Ectopic: 0 Livin Cesareans: 0 VBACs: 0 Multiple Births: 0 Gestational Diabetes: No Rh Sensitization: No Incompetent Cervix: No ALLAN: No Infertility: No ART Treatment: No Uterine Anomaly: No IUGR: No Hx Previous C/S: No Macrosomia: No Hx Loss/Stillborn: No PIH: Yes Hx : No Placenta Previa/Abruption: No Depression/PP Depression: Yes PTL/PROM: No Post Hemorrhage: No Current Procedures: Ultrasound; NST Obstetrical History Comments: G1-2011 G2- @38weeks, male, 09/09/2012 G3-2014 G4-2015 G5-2015 G6-12/2016 G7- @41weeks, female 01/30/2017 G8- @40weeks, female 11/09/2018 SEE RECORDS Alcohol: No Marijuana : No Cocaine: No Other Illicit Drugs: No Cigarettes: Current Everyday Smoker. [id number] Cigarette Frequency: < 5 per day Advised to Stop: Yes MEDICAL HISTORY Diabetes: No Blood Transfusion: No Pulmonary Disease (Asthma, TB): No Breast Disease: No Hypertension: No Plumber Pipe Fitting Surgery: No Heart Disease: No Hosp/Surgery: No Autoimmune Disorder: No Anesthetic Complications: No Kidney Disease: No Abnormal Pap Smear: No Neuro/Epilepsy: No Psychiatric Disorders: Yes Other Medical Diseases: No Hepatitis/Liver Disease: No Significant Family History: No Varicosities/Phlebitis: No Trauma/Violence : No Thyroid Dysfunction: No INFECTIOUS HISTORY Gonorrhea: No Genital Herpes: No Chlamydia: No Tuberculosis: No Syphilis: No Hepatitis: No HIV/AIDS Exposure: No Rash or Viral Illness: No HPV: No Infectious History Comments: Hep C+ carrier PHYSICAL EXAM General: Normal HEENT: Normal Neurologic: Normal Thyroid: Deferred Heart: Normal Lungs: Normal Breast: Deferred Back: Normal Abdomen: Normal Genitourinary Exam: Deferred Extremities: Normal DTRs: Deferred Pelvic Type: Not Done Vital Signs: Reviewed VAGINAL EXAM Dilatation: 4 Contraction Comments: 3-5 MEMBRANES Membranes: Ruptured Amniotic Fluid Color: Clear FETUS A EGA: 40.1 Monitoring: External US FHR Category: Category I Presentation: Vertex Admit Comment: arrived on unit with SROM. Reports srom at 0600. She c/o contractions that are moderately painful and regular but cervix is unchanged from 0050 this am. Discussed may need augmentation with pitocin. Hep C history, recent Quant was negative. She is on subutex. GBS neg. PLANS FOR LABOR AND DELIVERY Labor and Delivery: None Pain Management: Epidural Feeding Preference: Breast Benefit of Breast Feed Discussed: Yes Circumcision: Yes INFORMED CONSENT Assignment: Anyi Redd MD Signature: with User ID: [email or web address] : with User ID: [email or web address]
--- NOTE | 2020-05-24 11:04 | Warning Signs in Babies ---
VOD Warning Signs Datetime Report Generated by [facility]: 05/24/2020 11:04 VOD#608 -Warning Signs in Babies: Viewed with Parent(s)/Family (05/03/2020 16:54:Brittany Burleson RN)
[2020-05-24 12:29] LABS: INTERNATIONAL RATION (INR) 0.97; PARTIAL THROMBOPLASTIN TIME 30.5 SEC (23.5-35.8); PROTHROMBIN TIME 13.1 SEC (11.4-15.4)
[2020-05-24 13:11] LABS: APPEARANCE,URINE CLEAR; BILIRUBIN,URINE NEGATIVE (NEGATIVE); COLOR,URINE YELLOW; GLUCOSE, URINE NEGATIVE (NEGATIVE); KETONES,URINE NEGATIVE (NEGATIVE); LEUKOCYTE ESTERASE,URINE NEGATIVE (NEGATIVE); NITRITE,URINE NEGATIVE (NEGATIVE); PROTEIN,URINE NEGATIVE (NEGATIVE); URINE SPECIFIC GRAVITY 1.024; UROBILINOGEN,URINE NEGATIVE mg/dL (<2.0)
[2020-05-24] MEDS ORDERED: OXYTOCIN/0.9 % SODIUM CHLORIDE 30 UNIT/500 ML RTUINJ IV PRN ×2 (14:02→15:21)
[2020-05-24] MEDS ORDERED: GLYCERIN/WITCH HAZEL LEAF 1 EACH MED..WIPE TP PRN (15:21)
[2020-05-24] MEDS ORDERED: BENZOCAINE/MENTHOL AEROSOL SPRAY 56 ML TOP PRN (15:21)
[2020-05-24] MEDS ORDERED: NA PHOS,M-B/NA PHOS,DI-BA (ADULT) 133 ML ENEMA PR PRN (15:21)
[2020-05-24] MEDS ORDERED: PSEUDOEPHEDRINE HCL 30 MG TABLET PO PRN (15:21)
[2020-05-24] MEDS ORDERED: DIPHENHYDRAMINE HCL 25 MG CAPSULE PO PRN (15:21)
[2020-05-24] MEDS ORDERED: PROMETHAZINE HCL 25 MG SUPP.RECT PR PRN (15:21)
[2020-05-24] MEDS ORDERED: DIBUCAINE 1% OINTMENT 28 GM TP PRN (15:21)
[2020-05-24] MEDS ORDERED: PROMETHAZINE HCL INJ 25 MG/1 ML VIAL IV PRN (15:21)
[2020-05-24] MEDS ORDERED: DIPH/PERTUSS(ACELL)/TETANUS VAC/PF 0.5 ML SYR (>=10YO) IM PRN (15:21)
[2020-05-24] MEDS ORDERED: PROMETHAZINE HCL 25 MG TABLET PO PRN (15:21)
[2020-05-24] MEDS ORDERED: MEASLES,MUMPS&RUBELLA VACC/PF 0.5 ML VIAL SUBCUT PRN (15:21)
[2020-05-24] MEDS ORDERED: MAGNESIUM HYDROXIDE SUSP 30 ML UDCUP PO PRN (15:21)
[2020-05-24] MEDS ORDERED: ZOLPIDEM TARTRATE 5 MG TABLET PO PRN (15:21)
[2020-05-24] MEDS ORDERED: IBUPROFEN 800 MG TABLET ONE (15:43)
[2020-05-24] MEDS: DOCUSATE SODIUM 100 MG CAPSULE PO SCH (18:59)
[2020-05-24] MEDS: FERROUS SULFATE 325 MG TABLET PO SCH (19:01)
[2020-05-24] MEDS: IBUPROFEN 800 MG TABLET PO SCH (21:25)
[2020-05-24] MEDS: FAMOTIDINE 20 MG TABLET PO SCH (21:25)
[2020-05-25] MEDS: IBUPROFEN 800 MG TABLET PO SCH ×4 (00:59→17:52)
[2020-05-25 05:38] LABS: HEPATITIS C VIRUS AB >11.0 s/co ratio (0.0-0.9)
[2020-05-25] MEDS: SENNOSIDES/DOCUSATE 8.6-50 MG 1 EACH TABLET PO SCH (10:15)
[2020-05-25] MEDS: PRENATAL VITAMIN W DHA CAPSULE PO SCH (10:15)
[2020-05-25] MEDS: FERROUS SULFATE 325 MG TABLET PO SCH ×2 (10:15→18:28)
[2020-05-25] MEDS: FAMOTIDINE 20 MG TABLET PO SCH ×2 (10:15→22:10)
[2020-05-25] MEDS: DOCUSATE SODIUM 100 MG CAPSULE PO SCH ×2 (10:15→18:27)
[2020-05-25 10:36] LABS: MEAN CORPUSCULAR HEMOGLOBIN 25.1 pg (27.0-33.4); MEAN CORPUSCULAR HGB CONC 33.3 g/dL (32.0-36.0); MEAN CORPUSCULAR VOLUME 75 fl (80-97); PLATELET COUNT 213 10^3/uL (150-450); RED BLOOD COUNT 3.97 10^6/uL (3.72-5.28); RED CELL DISTRIBUTION WIDTH 14.7 % (11.5-14.0); WHITE BLOOD COUNT 7.2 10^3/uL (4.0-10.5)
--- NOTE | 2020-05-25 12:18 | PDOC PROGRESS REPORT ---
Subjective-OB Progress Note for:: 05/25/20 Subjective: Pt doing well, no complaints. States pain is controlled, voiding w/o difficulty, reg diet, light bleeding w/o clots. Physical Exam (OB) Vital Signs: Temp Pulse Resp BP Pulse Ox 97.4 F 62 16 93/50 L 99 05/25/20 09:04 05/25/20 07:37 05/25/20 07:37 05/25/20 07:37 05/25/20 07:37 Intake & Output 05/24/20 05/25/20 05/26/20 06:59 06:59 06:59 Intake Total 1500 Balance 1500 Weight 75 kg - PIH/Pre-Eclampsia DTR's: 2 + Clonus: Negative Headache: Absent Epigastric Pain: No Visual Changes: No - Maternal Morbidity 59. Maternal Morbidity (serious complications experinced by the mother associate d with labor and delivery: None of the above - Lochia Lochia Amount: Scant < 10 ml Lochia Color: Rubra/Red - Abdomen Description: Soft, Round Hernia Present: No Fundal Description: Firm, Midline Fundal Height: u/u - u/2 Objective-Diagnostic Laboratory: 05/25/20 09:40 05/24/20 09:38 05/24/20 05/25/20 05/25/20 09:45 09:40 09:40 WBC 7.2 RBC 3.97 Hgb 10.0 L Hct 30.0 L MCV 75 L MCH 25.1 L MCHC 33.3 RDW 14.7 H Plt Count 213 Urine Color YELLOW Urine Appearance CLEAR Urine pH 6.0 Ur Specific [place] 1.024 Urine Protein NEGATIVE Urine Glucose (UA) NEGATIVE Urine Ketones NEGATIVE Urine Blood NEGATIVE Urine Nitrite NEGATIVE Ur Leukocyte Esterase NEGATIVE Urine WBC (Auto) 1 Urine RBC (Auto) 0 Blood Type A NEGATIVE Assessment and Plan(PN) - Assessment and Plan (1) Vaginal delivery Is this a current diagnosis for this admission?: Yes (2) Active labor at term Is this a current diagnosis for this admission?: Yes (3) Hepatitis C antibody positive in blood Is this a current diagnosis for this admission?: Yes (4) Spontaneous rupture of amniotic membranes Is this a current diagnosis for this admission?: Yes - Time Spent with Patient Time with patient: Less than 15 minutes Medications reviewed and adjusted accordingly: Yes - Disposition Anticipated Discharge Disposition: Home, Self Care Anticipated Discharge Timeframe: within 24 hours
[2020-05-26] MEDS: IBUPROFEN 800 MG TABLET PO SCH ×3 (02:17→10:57)
[2020-05-26 09:14] VITALS: BP 109/67
[2020-05-26] MEDS: FAMOTIDINE 20 MG TABLET PO SCH (10:51)
[2020-05-26] MEDS: SENNOSIDES/DOCUSATE 8.6-50 MG 1 EACH TABLET PO SCH (10:51)
[2020-05-26] MEDS: PRENATAL VITAMIN W DHA CAPSULE PO SCH (10:51)
[2020-05-26] MEDS: FERROUS SULFATE 325 MG TABLET PO SCH (10:51)
[2020-05-26] MEDS: DOCUSATE SODIUM 100 MG CAPSULE PO SCH (10:51)
--- NOTE | 2020-05-26 13:30 | PDOC DISCHARGE SUMMARY ---
Impression - Admit/DC Date/PCP Admission Date/Primary Care Provider: 05/24/20 07:49 MONTY THURSTON MD Discharge Date: 05/26/20 - Discharge Diagnosis (1) Vaginal delivery Is this a current diagnosis for this admission?: Yes (2) Active labor at term Is this a current diagnosis for this admission?: Yes (3) Hepatitis C antibody positive in blood Is this a current diagnosis for this admission?: Yes (4) Spontaneous rupture of amniotic membranes Is this a current diagnosis for this admission?: Yes - Additional Information Resuscitation Status: Full Code Discharge Diet: Regular Discharge Activity: Balance Activity w/Rest, Pelvic Rest Referrals: MONTY THURSTON MD [Primary Care Provider] - Prescriptions: Ibuprofen [Motrin 800 mg Tablet] 800 mg PO Q8HP PRN #60 tablet PRN Reason: Home Medications: Buprenorphine HCl [Subutex 8 mg Sublingual Tablet] 1 tab SL BID 10/15/16 No122/Iron/Folic Acid [ Multi Tablet] 1 each PO DAILY 12/20/16 Ibuprofen [Motrin 800 mg Tablet] 800 mg PO Q8HP PRN #60 tablet 05/26/20 HPI Gestational Age: 40.1 Reason(s) for Admission: Onset of Labor Procedures: NST Intrapartum Procedure(s): Spontaneous Vaginal Delivery Hospital Course 59. Maternal Morbidity (serious complications experinced by the mother associated with labor and delivery: None of the above Results Laboratory Results: WBC 6.5 10^3/uL (4.0-10.5) 05/24/20 08:17 RBC 4.33 10^6/uL (3.72-5.28) 05/24/20 08:17 Hgb 11.1 g/dL (12.0-15.5) L 05/24/20 08:17 Hct 32.9 % (36.0-47.0) L 05/24/20 08:17 MCV 76 fl (80-97) L 05/24/20 08:17 MCH 25.6 pg (27.0-33.4) L 05/24/20 08:17 MCHC 33.6 g/dL (32.0-36.0) 05/24/20 08:17 RDW 14.8 % (11.5-14.0) H 05/24/20 08:17 Plt Count 207 10^3/uL (150-450) 05/24/20 08:17 Lymph % (Auto) 26.0 % (13-45) 05/24/20 08:17 [place] % (Auto) 7.4 % (3-13) 05/24/20 08:17 Eos % (Auto) 1.4 % (0-6) 05/24/20 08:17 Baso % (Auto) 0.8 % (0-2) 05/24/20 08:17 Absolute Neuts (auto) 4.2 10^3/uL (1.7-8.2) 05/24/20 08:17 Absolute Lymphs (auto) 1.7 10^3/uL (0.5-4.7) 05/24/20 08:17 Absolute Monos (auto) 0.5 10^3/uL (0.1-1.4) 05/24/20 08:17 Absolute Eos (auto) 0.1 10^3/uL (0.0-0.6) 05/24/20 08:17 Absolute Basos (auto) 0.0 10^3/uL (0.0-0.2) 05/24/20 08:17 Seg Neutrophils % 64.4 % (42-78) 05/24/20 08:17 PT 13.1 SEC (11.4-15.4) 05/24/20 12:08 INR 0.97 05/24/20 12:08 APTT 30.5 SEC (23.5-35.8) 05/24/20 12:08 Sodium 133.8 mmol/L (137-145) L 05/24/20 09:38 Potassium 4.5 mmol/L (3.6-5.0) 05/24/20 09:38 Chloride 106 mmol/L (98-107) 05/24/20 09:38 Carbon Dioxide 22 mmol/L (22-30) 05/24/20 09:38 Anion Gap 6 (5-19) 05/24/20 09:38 BUN 14 mg/dL (7-20) 05/24/20 09:38 Creatinine 0.68 mg/dL (0.52-1.25) 05/24/20 09:38 Est GFR ( Amer) > 60 (>60) 05/24/20 09:38 Est GFR (MDRD) Non-Af > 60 (>60) 05/24/20 09:38 Glucose 83 mg/dL (75-110) 05/24/20 09:38 Calcium 9.0 mg/dL (8.4-10.2) 05/24/20 09:38 Total Bilirubin 0.6 mg/dL (0.2-1.3) 05/24/20 09:38 Direct Bilirubin 0.3 mg/dL (0.0-0.4) 05/24/20 09:38 Neonat Total Bilirubin Not Reportable 05/24/20 09:38 Neonat Direct Bilirubin Not Reportable 05/24/20 09:38 Neonat Indirect Bili Not Reportable 05/24/20 09:38 AST 32 U/L (14-36) 05/24/20 09:38 ALT 7 U/L (<35) 05/24/20 09:38 Alkaline Phosphatase 163 U/L (38-126) H 05/24/20 09:38 Total Protein 6.3 g/dL (6.3-8.2) 05/24/20 09:38 Albumin 3.2 g/dL (3.5-5.0) L 05/24/20 09:38 Urine Color YELLOW 05/24/20 09:45 Urine Appearance CLEAR 05/24/20 09:45 Urine pH 6.0 (5.0-9.0) 05/24/20 09:45 Ur Specific [place] 1.024 05/24/20 09:45 Urine Protein NEGATIVE mg/dL (NEGATIVE) 05/24/20 09:45 Urine Glucose (UA) NEGATIVE mg/dL (NEGATIVE) 05/24/20 09:45 Urine Ketones NEGATIVE mg/dL (NEGATIVE) 05/24/20 09:45 Urine Blood NEGATIVE (NEGATIVE) 05/24/20 09:45 Urine Nitrite NEGATIVE (NEGATIVE) 05/24/20 09:45 Urine Bilirubin NEGATIVE (NEGATIVE) 05/24/20 09:45 Urine Urobilinogen NEGATIVE mg/dL (<2.0) 05/24/20 09:45 Ur Leukocyte Esterase NEGATIVE (NEGATIVE) 05/24/20 09:45 Urine WBC (Auto) 1 /HPF 05/24/20 09:45 Urine RBC (Auto) 0 /HPF 05/24/20 09:45 Squamous Epi Cells Auto 1 /HPF 05/24/20 09:45 Urine Mucus (Auto) OCC /LPF 05/24/20 09:45 Urine Ascorbic Acid NEGATIVE (NEGATIVE) 05/24/20 09:45 Blood Type A NEGATIVE 05/24/20 08:17 Antibody Screen POSITIVE 05/24/20 08:17 Antibody Identification RHOGAM INDUCED ANTI-D 05/24/20 08:17 Crossmatch See Detail 05/24/20 08:17 Plan Plan of Treatment: f/u at [facility] Time Spent: Less than 30 Minutes
--- NOTE | 2020-05-31 11:51 | Delivery Summary ---
Del Sum A-C Datetime Report Generated by CPN: 05/31/2020 11:51 DELIVERY PERSONNEL DELIVERY PERSONNEL: [id number] Delivery Doctor:: Venita Vegas CNM Labor and Delivery Nurse:: Brittany Burleson RNanimal attendants and trainers Nurse:: Keyona Pinzon RN Nursery Nurse:: Tarsha Smalls RN MATERNAL INFORMATION Delivery Anesthesia: Epidural Medications After Delivery: Pitocin 30 Units in 500ml NS/D5W Delivery QBL: 75 Delivery QBL Comment: 75 Maternal Complications: None Provider Comments: SVDVM over intact perineum. OA to TWAN with mild shoulder dystocia. Gale assumed, gentle downward traction, attempted del of post shoulder and then ant shoulder again, suprapubic pressure applied. Time to delivery of head was <1min. Infant vigorous to maternal abd, dried and stimulated. Cord clamped after 2 min, and cut per FOB. 3VC noted, cord blood collected. Spont placenta via boyer, intact. Bleeding stabilized. Mother and stable. LABOR SUMMARY EDC: 05/23/2020 00:00 No. Babies in Womb: 1 Attempted: No Labor Anesthesia: Epidural LABOR INFORMATION Reason for Induction: Not Applicable Onset of Labor: 05/24/2020 06:00 Complete Dilatation: 05/24/2020 14:49 Oxytocin: Augmentation Group B Beta Strep: negative Antibiotics # of Doses: 0 Steroids Given: None Reason Steroids Not Administered: Not Applicable MEMBRANES Membranes Rupture Method: Spontaneous Rupture of Membranes: 05/24/2020 06:00 Length of Rupture (hr): 9.05 Amniotic Fluid Color: Clear Amniotic Fluid Color: Clear Amniotic Fluid Amount: Small Amniotic Fluid Amount: "Splashed in toilet" per pt, none noted on chux since adm Amniotic Fluid Odor: Normal STAGES OF LABOR Stage 1 hr: 8 Stage 1 min: 49 Stage 2 hr: 0 Stage 2 min: 14 Stage 3 hr: 0 Stage 3 min: 6 Total Time in Labor hr: 9 Total Time in Labor min: 9 VAGINAL DELIVERY Episiotomy: None Laceration #1: None Laceration Extension #1: N/A Sponge Count Correct: Yes Sharps Count Correct: Yes CSECTION DELIVERY Primary Indication: N/A Secondary Indication: N/A CSection Incidence: N/A Labor: N/A Elective: N/A CSection Incision: N/A BABY A INFORMATION Delivery Date/Time: 05/24/2020 15:03 Method of Delivery: Vaginal Method of Delivery: Vaginal Nurse Controlled Delivery: No Born in Route : No : N/A Forceps: N/A Vacuum Extraction: N/A Shoulder Dystocia : Yes SHOULDER DYSTOCIA BABY A Delivery of Head: 05/24/2020 15:03 Time Head to Delivery : 0.0 1st Intervention to Resolve: Gentle Attempt at Traction, Assisted by Maternal Expulsive Efforts 2nd Intervention to Resolve: Suprapubic Pressure 3rd Intervention to Resolve: McRobert's Maneuver Verify NO Fundal Pressure: No Fundal Pressure Applied Arm Under Symphisis at Del: Left PRESENTATION/POSITION BABY A Presentation: Cephalic Presentation: Cephalic Cephalic Presentation: Vertex Vertex Position: Right Occipital Transverse Breech Presentation: N/A PLACENTA INFORMATION BABY A Placenta Delivery Time : 05/24/2020 15:09 Placenta Method of Delivery: Spontaneous Placenta Status: Delivered SCORES BABY A Heart Rate 1 min: >100 bpm Resp Effort 1 min: Good Cry Reflex Irritability 1 min: Cough or Sneeze or Pulls Away Muscle Tone 1 min: Active Motion Color 1 min: Blue/Pale Resuscitation Effort 1 min: Tactile Stimulation SCORE 1 MIN: 8 Heart Rate 5 min: >100 bpm Resp Effort 5 min: Good Cry Reflex Irritability 5 min: Cough or Sneeze or Pulls Away Muscle Tone 5 min: Active Motion Color 5 min: Body [place], Extremities Blue Resuscitation Effort 5 min: N/A SCORE 5 MIN: 9 INFANT INFORMATION BABY A Gestational Age at Delivery: 40.1 Gestational Status: Full Term- 39- 40.6 Weeks Outcome : Liveborn Infant Condition : Stable Infant Sex: Male IDENTIFICATION BABY A Verification Date/Time: 05/24/2020 15:17 ID Band Number: [id number] Mother's Name Verified: Yes RN Verifying Infant: M Benjy Additional Verifying Personnel: Norma Pinzon WEIGHT/LENGTH BABY A Infant Birthweight (gm): 3711 Weight (lb): 8 Infant Weight (oz): 3 Infant Length (in): 20.50 Length (cm): 52.07 CORD INFORMATION BABY A No. Cord Vessels: 3 Nuchal Cord : N/A Cord Blood Taken: Yes-For Eval (Mom's Blood Type - or O+) Infant Suction: Mouth ASSESSMENT BABY A Complications: None Physical Findings at Delivery: Within Normal Limits Infant Respirations: Appears Normal [employer]/ALS Called : No Care By: Barbra Smalls RN Transferred To: Remains with Mother BABY B INFORMATION : N/A SIGNATURES Assignment: Anyi Redd MD Signature: with User ID: [email or web address] : with User ID: [email or web address] : I was personally available for consultation and serving as supervising physician for the MLP. : I was personally available for consultation and serving as supervising physician for the MLP.
== END 2020-05-26 13:57 | disposition home or self-care (01) | DRG 806 ==
LOC: LC 07:34 → LR 07:49 → 2S 18:34
PROVIDERS: ADMIT Student in an Organized Health Care Education/Training Program; ATTEND Student in an Organized Health Care Education/Training Program
PROC: 3E0234Z Introduction of Serum, Toxoid and Vaccine into Muscle, Percutaneous Approach (ICD-10-PCS; principal; 2020-05-24)
PROC: 10E0XZZ Delivery of Products of Conception, External Approach (ICD-10-PCS; 2020-05-24)
PROC: 3E0234Z Introduction of Serum, Toxoid and Vaccine into Muscle, Percutaneous Approach (ICD-10-PCS; 2020-05-25)
DX: O99.334 Smoking (tobacco) complicating childbirth (principal); O98.42 Viral hepatitis complicating childbirth; Z37.0 Single live birth; O66.0 Obstructed labor due to shoulder dystocia; F17.210 Nicotine dependence, cigarettes, uncomplicated; Z88.6 Allergy status to analgesic agent; Z22.8 Carrier of other infectious diseases; O26.893 Other specified pregnancy related conditions, third trimester; Z67.11 Type A blood, Rh negative; Z28.20 Immunization not carried out because of patient decision for unspecified reason; Z3A.40 40 weeks gestation of pregnancy
CPT/HCPCS: 1967; 36415; 80053; 81001; 85025; 85027; 85461; 85610; 85730; 86592; 86803; 86804; 86850; 86870; 86900; 86901; 86920; 86922; J2590; J2790; J2795; J3010; J3490